=== PATIENT | male | born 1975 | race Caucasian/White ===

== ENCOUNTER 2017-08-06 02:51 | Emergency (ER) | payer MEDICAID ==
[~2017-08-06] VITALS: Ht 182.9 cm; Wt 74.8 kg
[~2017-08-06 02:51] MED LIST: AUGMENTIN 875-1 EAC1 ORAL; HYDROCODON-ACE1 EA15 ORAL
[2017-08-06 03:20] VITALS: BP 124/74
[2017-08-06] MEDS ORDERED: UNOBMED (03:23)
[2017-08-06 03:35] VITALS: BP 124/74
--- NOTE | 2017-08-07 06:48 | Emergency Room Report ---
History of Present Illness General Chief Complaint: Earache Source: Patient Present Illness HPI 42-year-old male presents ED for evaluation. Patient states he's been experiencing ringing in his ears for the last month. Patient denies any pain. Denies any difficulty hearing. Denies taking any new medications. History of HIV but states he is compliant with his meds. Denies any fevers or chills. No other aggravating or relieving factors. Denies any other associated symptoms Allergies: Coded Allergies: No Known Allergies (Unverified , 02/18/15) Patient History Past Medical History: none, HIV Past Surgical History: none Pertinent Family History: none Social History: Denies: smoking, alcohol use, drug use Immunizations: UTD Reviewed Nursing Documentation: PMH: Agreed, PSxH: Agreed Nursing Documentation-PMH Past Medical History: No History, Except For Hx Cardiac Problems: No - +hiv Review of Systems All Other Systems: negative except mentioned in HPI Physical Exam Vital Signs Date Time Temp Pulse Resp B/P (MAP) Pulse Ox O2 Delivery O2 Flow Rate FiO2 08/06/17 03:19 97.8 101 16 124/74 99 Room Air 97.9 Sp02 EP Interpretation: reviewed, normal General Appearance: no apparent distress, alert, GCS 15, non-toxic Head: normocephalic, atraumatic Eyes: bilateral eye normal inspection, bilateral eye PERRL ENT: hearing grossly normal, normal pharynx, no angioedema, normal voice, TMs + canals normal Neck: full range of motion, supple/symm/no masses Respiratory: chest non-tender, lungs clear, normal breath sounds, speaking full sentences Cardiovascular #1: regular rate, rhythm, no edema Cardiovascular #2: 2+ carotid (R), 2+ carotid (L), 2+ radial (R), 2+ radial (L) , 2+ dorsalis pedis (R), 2+ dorsalis pedis (L) Gastrointestinal: normal bowel sounds, non tender, soft, non-distended, no guarding, no rebound Rectal: deferred Genitourinary: normal inspection, no CVA tenderness Musculoskeletal: back normal, gait/station normal, normal range of motion, non- tender Neurologic: alert, oriented x3, responsive, motor strength/tone normal, sensory intact, speech normal Psychiatric: judgement/insight normal, memory normal, mood/affect normal, no suicidal/homicidal ideation Reflexes: 3+ bicep (R), 3+ bicep (L), 3+ tricep (R), 3+ tricep (L), 3+ knee (R) , 3+ knee (L) Skin: normal color, no rash, warm/dry, well hydrated Lymphatic: no adenopathy Medical Decision Making Diagnostic Impression: Primary Impression: Tinnitus of both ears ER Course Hospital Course 42-year-old male presents to ED with ringing in both ears x 1 month Differential diagnoses include: TM perforation, otitis externa, otitis media, vestibulitis/labryntitis Clinical course Patient placed on stretcher. After initial history, physical exam reveals a young female in no acute distress. Bilateral TM unremarkable with good light reflex and normal anatomy. No evidence of TM perforation. Remainder of physical exam unremarkable. Given the lack of vestibular symptoms, with normal hearing, I seen no additional workup that needs to be done at this time. However I encouraged that patient see ENT as outpatient. Patient agrees with plan Diagnosis - tinnitus of both ears Stable and discharged to home. Followup with PMD. Return to ED if symptoms recur or worsen Last Vital Signs Date Time Temp Pulse Resp B/P (MAP) Pulse Ox O2 Delivery O2 Flow Rate FiO2 08/06/17 03:35 97.8 16 124/74 99 Room Air 97.9 08/06/17 03:19 101 Status: improved Disposition: HOME, SELF-CARE Condition: Stable Referrals: NOT CHOSEN ALINA/,REFERRING (PCP) Patient Instructions: Tinnitus MONIKA BILLS M.D. Aug 07, 2017 06:47
== END 2017-08-06 03:35 | disposition home or self-care (01) ==
LOC: EMR 03:30
DX: H93.13 Tinnitus, bilateral (principal)
CPT/HCPCS: 99282